=== PATIENT | female | born 1950 | race Caucasian/White ===

== ENCOUNTER 2017-03-28 13:38 | Observation (INO) | payer BC ==
[2017-03-28] MEDS ORDERED: ASPIRIN 81 MG PO STA (14:10)
[2017-03-28] MEDS ORDERED: NITROGLYCERIN SL TABS 0.4 MG TAB SUBLINGUAL STA (14:10)
[2017-03-28] MEDS ORDERED: NITROGLYCERIN OINT 1 INCH/GM PACKET TOPICAL STA (14:10)
--- NOTE | 2017-03-28 14:12 | ED ---
General Adult HPI - General Chief complaint: Chest Pain Stated complaint: Chest Pain Time Seen by Provider: 03/28/17 13:45 Source: patient, RN notes reviewed Mode of arrival: wheelchair Limitations: no limitations - History of Present Illness Initial comments: This is a 66-year-old female presents emergency Department complaining of chest pain 1 hour. Patient states it radiates to the back. Patient states she has no previous cardiac history but she does have high cholesterol denies any high blood pressure or diabetes. Patient denies any smoking for years. Patient states the pain is somewhat subsided now but it still is in the front of her chest a little. Patient denies any diaphoresis associated with the pain. Patient denies chance of breath or difficult to breathing. Patient denies any nausea. Patient states she has slight epigastric tenderness. Patient denies any lower abdominal pain. Patient denies any lightheadedness dizziness or near syncopal episode. Patient denies headache patient denies numbness weakness - Related Data Home Medications Medication Instructions Recorded Confirmed Aspirin EC [Ecotrin Low Dose] 81 mg PO HS 03/28/17 03/28/17 Multivitamins, Thera [Multivitamin 1 tab PO DAILY 03/28/17 03/28/17 (formulary)] Naltrexone HCl/Bupropion HCl 1 tab PO BID 03/28/17 03/28/17 [Contrave ER 8-90 mg Tablet] Rosuvastatin [Crestor] 20 mg PO HS 03/28/17 03/28/17 Allergies Allergy/AdvReac Type Severity Reaction Status Date / Time No Known Allergies Allergy Verified 03/28/17 13:57 Review of Systems ROS Statement: Those systems with pertinent positive or pertinent negative responses have been documented in the HPI. ROS Other: All systems not noted in ROS Statement are negative. Past Medical History Past Medical History: CVA/TIA, Hyperlipidemia Additional Past Medical History / Comment(s): 3 TIAs per patient History of Any Multi-Drug Resistant Organisms: None Reported Past Surgical History: Back Surgery, Hysterectomy Additional Past Surgical History / Comment(s): wrist and foot surgery Past Psychological History: No Psychological Hx Reported Smoking Status: Former smoker Past Alcohol Use History: Rare Past Drug Use History: None Reported General Exam - General Exam Comments Initial Comments: GENERAL: Patient is well-developed and well-nourished. Patient is nontoxic and well- hydrated and is in mild distress. ENT: Neck is soft and supple. No significant lymphadenopathy is noted. Oropharynx is clear. Moist mucous membranes. Neck has full range of motion without eliciting any pain. EYES: The sclera were anicteric and conjunctiva were pink and moist. Extraocular movements were intact and pupils were equal round and reactive to light. Eyelids were unremarkable. PULMONARY: Unlabored respirations. Good breath sounds bilaterally. No audible rales rhonchi or wheezing was noted. CARDIOVASCULAR: There is a regular rate and rhythm without any murmurs gallops or rubs. ABDOMEN: Soft and nontender with normal bowel sounds. No palpable organomegaly was noted. There is no palpable pulsatile mass. SKIN: Skin is clear with no lesions or rashes and otherwise unremarkable. NEUROLOGIC: Patient is alert and oriented x3. Cranial nerves II through XII are grossly intact. Motor and sensory are also intact. Normal speech, volume and content. Symmetrical smile. MUSCULOSKELETAL: Normal extremities with adequate strength and full range of motion. No lower extremity swelling or edema. No calf tenderness. LYMPHATICS: No significant lymphadenopathy is noted PSYCHIATRIC: Normal psychiatric evaluation. Normal interpersonal interactions appears functionally intact in deals appropriately with others. No signs of depression. No signs of anxiety. Limitations: no limitations Course Vital Signs 03/28/17 03/28/17 13:42 14:40 Temperature 97.8 F Pulse Rate 96 79 Respiratory 20 18 Rate Blood Pressure 180/107 139/76 O2 Sat by Pulse 99 99 Oximetry Medical Decision Making - Medical Decision Making EKG shows a normal sinus rhythm 86 bpm NM interval is 174 QRS is 74 QT interval 354 QTC is 423. Patient's EKG shows no ST segment elevation or depression or T wave abnormalities are noted Chest x-ray shows no acute abnormality. I started the patient on heparin because of the significance of her clinical picture and risk factors. Patient also received aspirin and Nitropaste. Patient will be admitted to Dr. Cruz. I wrote admitting orders I consult to cardiology I continued heparin Nitropaste and aspirin on the floor. - Lab Data Result diagrams: 03/28/17 14:20 03/28/17 14:20 Lab Results 03/28/17 03/28/17 03/28/17 Range/Units 14:20 14:20 14:20 WBC 9.0 (3.8-10.6) k/uL RBC 4.66 (3.80-5.40) m/uL Hgb 14.7 (11.4-16.0) gm/dL Hct 44.5 (34.0-46.0) % MCV 95.5 (80.0-100.0) fL MCH 31.7 (25.0-35.0) pg MCHC 33.2 (31.0-37.0) g/dL RDW 13.5 (11.5-15.5) % Plt Count 272 (150-450) k/uL Neutrophils % 64 % Lymphocytes % 30 % Monocytes % 4 % Eosinophils % 0 % Basophils % 0 % Neutrophils # 5.8 (1.3-7.7) k/uL Lymphocytes # 2.7 (1.0-4.8) k/uL Monocytes # 0.4 (0-1.0) k/uL Eosinophils # 0.0 (0-0.7) k/uL Basophils # 0.0 (0-0.2) k/uL PT (9.0-12.0) sec INR (<1.2) APTT (22.0-30.0) sec Sodium 142 (137-145) mmol/L Potassium 4.1 (3.5-5.1) mmol/L Chloride 108 H (98-107) mmol/L Carbon Dioxide 23 (22-30) mmol/L Anion Gap 11 mmol/L BUN 21 H (7-17) mg/dL Creatinine 0.90 (0.52-1.04) mg/dL Est GFR (MDRD) Af Amer >60 (>60 ml/min/1.73 sqM) Est GFR (MDRD) Non-Af >60 (>60 ml/min/1.73 sqM) Glucose 101 H (74-99) mg/dL Calcium 10.0 (8.4-10.2) mg/dL Magnesium 2.1 (1.6-2.3) mg/dL Total Bilirubin 0.3 (0.2-1.3) mg/dL AST 20 (14-36) U/L ALT 36 (9-52) U/L Alkaline Phosphatase 68 (38-126) U/L Total Creatine Kinase 47 (30-135) U/L CK-MB (CK-2) 0.6 (0.0-2.4) ng/mL CK-MB (CK-2) Rel Index 1.3 Troponin I <0.012 (0.000-0.034) ng/mL Total Protein 6.9 (6.3-8.2) g/dL Albumin 4.3 (3.5-5.0) g/dL Amylase 68 (30-110) U/L Lipase 298 (23-300) U/L 03/28/17 Range/Units 14:20 WBC (3.8-10.6) k/uL RBC (3.80-5.40) m/uL Hgb (11.4-16.0) gm/dL Hct (34.0-46.0) % MCV (80.0-100.0) fL MCH (25.0-35.0) pg MCHC (31.0-37.0) g/dL RDW (11.5-15.5) % Plt Count (150-450) k/uL Neutrophils % % Lymphocytes % % Monocytes % % Eosinophils % % Basophils % % Neutrophils # (1.3-7.7) k/uL Lymphocytes # (1.0-4.8) k/uL Monocytes # (0-1.0) k/uL Eosinophils # (0-0.7) k/uL Basophils # (0-0.2) k/uL PT 10.1 (9.0-12.0) sec INR 1.0 (<1.2) APTT 22.3 (22.0-30.0) sec Sodium (137-145) mmol/L Potassium (3.5-5.1) mmol/L Chloride (98-107) mmol/L Carbon Dioxide (22-30) mmol/L Anion Gap mmol/L BUN (7-17) mg/dL Creatinine (0.52-1.04) mg/dL Est GFR (MDRD) Af Amer (>60 ml/min/1.73 sqM) Est GFR (MDRD) Non-Af (>60 ml/min/1.73 sqM) Glucose (74-99) mg/dL Calcium (8.4-10.2) mg/dL Magnesium (1.6-2.3) mg/dL Total Bilirubin (0.2-1.3) mg/dL AST (14-36) U/L ALT (9-52) U/L Alkaline Phosphatase (38-126) U/L Total Creatine Kinase (30-135) U/L CK-MB (CK-2) (0.0-2.4) ng/mL CK-MB (CK-2) Rel Index Troponin I (0.000-0.034) ng/mL Total Protein (6.3-8.2) g/dL Albumin (3.5-5.0) g/dL Amylase (30-110) U/L Lipase (23-300) U/L Critical Care Time Critical Care Time: Yes Total Critical Care Time: 35 Disposition Clinical Impression: Unstable angina pectoris Disposition: ADMITTED IP TO THIS [facility] Referrals: Nonstaff,Physician [Primary Care Provider] - 1-2 days Time of Disposition: 15:50
--- NOTE | 2017-03-28 14:47 | XR ---
EXAMINATION TYPE: XR chest 2V DATE OF EXAM: 03/28/2017 COMPARISON: NONE HISTORY: Chest pain today. TECHNIQUE: Frontal and lateral views of the chest are obtained. FINDINGS: There is mild biapical scarring. There is patchy left basilar scarring. There is no focal air space opacity, pleural effusion, or pneumothorax seen. The cardiac silhouette size is within nor mal limits. The osseous structures are intact. IMPRESSION: No acute cardiopulmonary process.
[2017-03-28 14:50] LABS: Basophils % (A) 0 %; CH 31.3; CHCM 32.9; Eosinophils % (A) 0 %; HCT 44.5 % (34.0-46.0); HDW 2.11; HGB 14.7 gm/dL (11.4-16.0); Luc # (Auto) 0.08; Luc % (Auto) 1; Lymphocytes # (A) 2.7 k/uL (1.0-4.8); Lymphocytes % (A) 30 %; MCH 31.7 pg (25.0-35.0); MCHC 33.2 g/dL (31.0-37.0); MCV 95.5 fL (80.0-100.0); Mean Platelet Volume 7.7; Monocytes # (A) 0.4 k/uL (0-1.0); Monocytes % (A) 4 %; Neutrophils # (A) 5.8 k/uL (1.3-7.7); Neutrophils % (A) 64 %; RBC 4.66 m/uL (3.80-5.40); RDW 13.5 % (11.5-15.5); WBC (Perox) 8.97
[2017-03-28 14:57] LABS: Partial Thromboplastin Time 22.3 sec (22.0-30.0); Prothrombin Time 10.1 sec (9.0-12.0)
[2017-03-28 15:06] LABS: ALT 36 U/L (9-52); AST 20 U/L (14-36); Alkaline Phosphatase 68 U/L (38-126); Amylase 68 U/L (30-110); Anion Gap 11 mmol/L; Blood Urea Nitrogen 21 mg/dL (7-17); Carbon Dioxide 23 mmol/L (22-30); Chloride 108 mmol/L (98-107); Glucose 101 mg/dL (74-99); Magnesium 2.1 mg/dL (1.6-2.3); Non-African American GFR(MDRD) >60 (>60 ml/min/1.73 sqM); Potassium 4.1 mmol/L (3.5-5.1); Sodium 142 mmol/L (137-145); Total Bilirubin 0.3 mg/dL (0.2-1.3); Total Protein 6.9 g/dL (6.3-8.2)
[2017-03-28 15:09] LABS: Creatine Kinase 47 U/L (30-135)
[2017-03-28 15:22] LABS: Creatine Kinase MB 0.6 ng/mL (0.0-2.4); Troponin I <0.012 ng/mL (0.000-0.034)
[2017-03-28] MEDS ORDERED: HEPARIN SODIUM,PORCINE 5,000 UNIT/ML 1 ML VIAL IV ONE (15:48)
[2017-03-28] MEDS ORDERED: NITROGLYCERIN SL TABS 0.4 MG TAB SUBLINGUAL PRN (15:50)
[2017-03-28] MEDS ORDERED: HEPARIN SODIUM,PORCINE/D5W PMX 25,000 UNIT in DEXTROSE/WATER 1 500ML.BAG IV SCH (16:00)
[2017-03-28 17:06] LABS: Appearance,Urine Clear (Clear); Bilirubin,Urine Negative (Negative); Glucose,Urine (UA) Negative (Negative); Ketones,Urine Trace (Negative); Leukocyte Esterase,Urine Negative (Negative); Nitrite,Urine Negative (Negative); Protein,Urine Negative (Negative); Specific Gravity,Urine 1.004 (1.001-1.035); UA Billing (MACRO vs. MICRO) CHEM; Urobilinogen,Urine <2.0 mg/dL (<2.0)
[2017-03-28] MEDS ORDERED: ACETAMINOPHEN TAB 325 MG TAB PO PRN (17:47)
[2017-03-28] MEDS ORDERED: NITROGLYCERIN OINT 1 INCH/GM PACKET TOPICAL SCH (18:00)
[2017-03-28] MEDS ORDERED: ONDANSETRON 4 MG/2 ML VIAL IVP PRN (20:04)
[2017-03-28] MEDS ORDERED: HYDROcodone/APAP 5-325MG 1 EACH TAB PO PRN (20:04)
[2017-03-28] MEDS ORDERED: ZOLPIDEM 10 MG TAB PO PRN (20:04)
[2017-03-28] MEDS ORDERED: MORPHINE SULFATE 10 MG/ML SYRINGE IVP PRN (20:05)
[2017-03-28] MEDS ORDERED: ATORVASTATIN 40 MG TAB PO SCH (21:00)
--- NOTE | 2017-03-28 21:55 | HP ---
HISTORY AND PHYSICAL CHIEF COMPLAINT: Chest pain. HISTORY OF PRESENT ILLNESS: This 66-year-old woman with a past medical history of CVA, TIA, hyperlipidemia, history of DJD, history of cardiac ablation, being followed by a primary physician in the [place] area, was complaining of chest pain. The patient initially had sharp chest pains followed by heavy pressure in the anterior part of the chest which radiated to the back. The patient got some nitroglycerin, which relieved the chest pain but gave the patient a headache. Patient was admitted for further evaluation and treatment. There was no sweating or palpitation. Radiation as mentioned earlier. No other relieving or aggravating factors. There is no history of any fever, rigors, chills, no history of headache, loss of consciousness, seizures. PAST MEDICAL HISTORY: 1. CVA, TIA. 2. Hyperlipidemia. 3. History of DJD. 4. History of TIAs, ablation. 5. Appendectomy. 6. Back surgery. MEDICATIONS: Medications prior to admission include: 1. Contrave 1 tablet p.o. b.i.d. 2. Multivitamins 1 p.o. daily. 3. Crestor 20 mg at bedtime. 4. Ecotrin 81 mg at bedtime. ALLERGIES: NONE. FAMILY HISTORY: History of cancer and myasthenia gravis. SOCIAL HISTORY: Previous history of smoking. No current smoking or alcohol intake. REVIEW OF SYSTEMS: ENT: No diminished hearing. No diminished vision. CARDIOVASCULAR SYSTEM: As mentioned earlier. RESPIRATORY SYSTEM: No cough, hemoptysis. GI: No nausea, vomiting. : No dysuria or retention. NERVOUS SYSTEM: No numbness, weakness. ALLERGY/IMMUNOLOGY: No asthma, hayfever. MUSCULOSKELETAL: As mentioned earlier. HEMATOLOGY/ONCOLOGY: No history of anemia. ENDOCRINE: No history of diabetes, hypothyroidism. CONSTITUTIONAL: As mentioned earlier. DERMATOLOGY: Negative. RHEUMATOLOGY: Negative. PSYCHIATRY: As mentioned earlier. PHYSICAL EXAMINATION: Patient is alert and oriented x3. Pulse is 73, blood pressure 126/68, respiration 18, temperature 97.8, pulse ox 99% on 2 L. HEENT: Conjunctivae normal. Oral mucosa moist. NECK: No jugular venous distention. No carotid bruit. No lymph node enlargement. CARDIOVASCULAR SYSTEM: S1, S2 muffled. No S3. No S4. RESPIRATORY SYSTEM: Breath sounds diminished at the bases. No rhonchi. No crackles. ABDOMEN: Soft, nontender. No mass palpable. LEGS: No edema. No swelling. NERVOUS SYSTEM: Higher functions as mentioned earlier. Moves all 4 limbs. No focal motor or sensory deficit. LYMPHATICS: No lymph node palpable in neck, axillae or groin. SKIN: No ulcer, rash, bleeding. LABS AT THIS TIME: CBC within normal limits. Sodium 140, potassium 4.1. BUN is 21. ASSESSMENT: 1. Chest pain; possible unstable angina. 2. Cerebrovascular accident, transient ischemic attack history. 3. Hyperlipidemia. 4. Degenerative joint disease. 5. History of appendectomy. 6. Back surgery. 7. Tubal ligation. 8. Remote history of nicotine dependence. RECOMMENDATIONS AND DISCUSSION: I recommend to continue current medication, continue symptomatic treatment. Rule out myocardial infarction. Closely follow with Cardiology. Possible stress test. Guarded prognosis because of multiple complex medical issues. Further recommendations to follow. MMODL / IJN: [id number] /
[2017-03-28 22:28] LABS: Creatine Kinase 38 U/L (30-135)
[2017-03-28 22:40] LABS: Creatine Kinase MB 0.4 ng/mL (0.0-2.4); Troponin I <0.012 ng/mL (0.000-0.034)
[2017-03-28] MEDS: BUPROPION HCL PO SCH (23:17)
[2017-03-28] MEDS: NALTREXONE HCL PO SCH (23:17)
[2017-03-29 02:49] LABS: Creatine Kinase 37 U/L (30-135)
[2017-03-29 03:02] LABS: Creatine Kinase MB 0.4 ng/mL (0.0-2.4); Troponin I <0.012 ng/mL (0.000-0.034)
[2017-03-29 06:08] LABS: Basophils % (A) 1 %; CH 31.2; CHCM 32.7; Eosinophils # (A) 0.1 k/uL (0-0.7); Eosinophils % (A) 2 %; HCT 44.1 % (34.0-46.0); HDW 2.15; HGB 14.2 gm/dL (11.4-16.0); Luc # (Auto) 0.11; Luc % (Auto) 2; Lymphocytes # (A) 2.6 k/uL (1.0-4.8); Lymphocytes % (A) 48 %; MCH 30.9 pg (25.0-35.0); MCHC 32.2 g/dL (31.0-37.0); MCV 95.9 fL (80.0-100.0); Monocytes # (A) 0.3 k/uL (0-1.0); Monocytes % (A) 5 %; Neutrophils # (A) 2.3 k/uL (1.3-7.7); Neutrophils % (A) 43 %; RBC 4.59 m/uL (3.80-5.40); RDW 12.2 % (11.5-15.5); WBC 5.5 k/uL (3.8-10.6); WBC (Perox) 5.19
[2017-03-29 06:22] LABS: Anion Gap 11 mmol/L; Blood Urea Nitrogen 16 mg/dL (7-17); Calcium 9.3 mg/dL (8.4-10.2); Carbon Dioxide 22 mmol/L (22-30); Chloride 109 mmol/L (98-107); Cholesterol 169 mg/dL (<200); Glucose 93 mg/dL (74-99); HDL Cholesterol 69 mg/dL (40-60); Non-African American GFR(MDRD) >60 (>60 ml/min/1.73 sqM); Potassium 4.2 mmol/L (3.5-5.1); Sodium 142 mmol/L (137-145)
[2017-03-29] MEDS ORDERED: ASPIRIN 325 MG TAB PO SCH (09:00)
[2017-03-29] MEDS: NALTREXONE HCL PO SCH (09:50)
[2017-03-29] MEDS: BUPROPION HCL PO SCH (09:50)
--- NOTE | 2017-03-29 11:22 | P.CRDCN ---
History of Present Illness Consult date: 03/29/17 History of present illness: Mrs Ferro is a 66-year-old female past medical history significant for hyperlipidemia and frequent TIAs. She does not see a rental agent and denies any history of coronary artery disease. She states yesterday after eating she experienced midsternal sharp chest pain radiated through to her back. She states in the past she has suffered from gastroesophageal reflux disease and typically she can drink some vinegar and this pain will subside. This did not work yesterday so she attempted some Tums she took 3 Tums and had no relief. The pain persisted for approximately an hour and was only relieved with sublingual nitroglycerin upon arrival to the ED. The pain did not radiate into the arms, neck, jaw or shoulder. She denies associated shortness of breath, dizziness, nausea or vomiting. She states during this episode she felt like her heart was pounding. She takes Crestor and aspirin daily. Blood pressure 111/63 with a heart rate is 67. EKG reveals sinus mechanism with no acute ST or T-wave abnormalities. Chest xray negative for acute cardiopulmonary process. Review of Systems CONSTITUTIONAL: Denies fever. Denies chills. EYES: Denies blurred vision. Denies vision changes. Denies eye pain. EARS, NOSE, MOUTH & THROAT: Denies headache. Denies sore throat. Denies ear pain. CARDIOVASCULAR: Complains of one episode of chest pain yesterday with pounding in her chest. Denies shortness of breath. Denies orthopnea. Denies PND. RESPIRATORY: Denies cough. GASTROINTESTINAL: Denies abdominal pain. Denies diarrhea. Denies constipation. Denies nausea. Denies vomitng. MUSCULOSKELETAL: Denies myalgias. INTEGUMENTARY: Denies pruitis. Denies rash. NEUROLOGIC: Denies numbness. Denies tingling. Denies weakness. PSYCHIATRIC: Denies anxiety. Denies depression. ENDOCRINE: Denies fatigue. Denies weight change. Denies polydipsia. Denies polyurina. GENITOURINARY: Denies burning, hematuria or urgency with micturation. HEMATOLOGIC: Denies history of anemia. Denies bleeding. Past Medical History Past Medical History: CVA/TIA, Hyperlipidemia, Osteoarthritis (OA) Additional Past Medical History / Comment(s): 3 TIAs per patient , UPPER BRIDGE , BEGINNINGS OF CATARACTS(SATNAM), DIVERTICULAR DISEASE, SHINGLES , PAST RT WRIST BROKEN History of Any Multi-Drug Resistant Organisms: None Reported Past Surgical History: Ablation, Appendectomy, Back Surgery, Hysterectomy, Tubal Ligation Additional Past Surgical History / Comment(s): SATNAM BUNIONECTOMY HAS PINS/SCREWS , TOTAL HYSTERECTOMY, RT WRIST SX"RESET BROKEN WRIST" Past Anesthesia/Blood Transfusion Reactions: No Reported Reaction Smoking Status: Former smoker - Past Family History Mother Additional Family Medical History / Comment(s): MG Father Family Medical History: Cancer Additional Family Medical History / Comment(s): LUNG CANCER- WAS A HEAVY SMOKER Medications and Allergies Home Medications Medication Instructions Recorded Confirmed Type Aspirin EC [Ecotrin Low Dose] 81 mg PO HS 03/28/17 03/28/17 History Multivitamins, Thera [Multivitamin 1 tab PO DAILY 03/28/17 03/28/17 History (formulary)] Naltrexone HCl/Bupropion HCl 1 tab PO BID 03/28/17 03/28/17 History [Contrave ER 8-90 mg Tablet] Rosuvastatin [Crestor] 20 mg PO HS 03/28/17 03/28/17 History Allergies Allergy/AdvReac Type Severity Reaction Status Date / Time No Known Allergies Allergy Verified 03/28/17 13:57 Physical Exam Vitals: Vital Signs Temp Pulse Pulse Resp BP BP Pulse Ox 03/29/17 07:54 97.7 F 67 16 111/63 95 03/29/17 03:50 18 03/29/17 03:37 98 F 70 18 118/64 99 03/29/17 00:00 98.1 F 66 18 130/61 100 03/28/17 23:54 18 03/28/17 20:00 18 03/28/17 19:55 98.1 F 78 18 138/72 98 03/28/17 16:59 76 18 03/28/17 16:47 97.7 F 76 18 151/73 96 03/28/17 16:20 97.8 F 73 18 126/68 99 03/28/17 14:40 79 18 139/76 99 03/28/17 13:42 97.8 F 96 20 180/107 99 Intake and Output 03/28/17 03/29/17 03/29/17 22:59 06:59 14:59 Intake Total 240 131.658 Balance 240 131.658 Intake: Intake, IV Titration 131.658 Amount Heparin Sodium,Porcine/ 131.658 D5w Pmx 25,000 unit In Dextrose/Water 1 500ml. bag @ 12 UNITS/KG/HR 18.5 mls/hr IV .Q24H [facility] Rx#: [id number] Oral 240 Other: Voiding Method Toilet Toilet Toilet # Voids 1 Weight 80.8 kg GENERAL: This is a 66-year-old female in no apparent distress at the time of my examination. HEENT: Head is atraumatic, normocephalic. Pupils are equal, round. Sclerae anicteric. Conjunctivae are clear. Mucous membranes of the mouth are moist. Neck is supple. There is no jugular venous distention. No carotid bruit is heard. LUNGS: Clear to auscultation no wheezes, rales or rhonchi. No chest wall tenderness is noted on palpation or with deep breathing. HEART: Regular rate and rhythm without murmurs, rubs or gallops. S1 and S2 heard. ABDOMEN: Soft, nontender. Bowel sounds are heard. No organomegaly noted. EXTREMITIES: 2+ peripheral pulses with no evidence of peripheral edema and no calf tenderness noted. NEUROLOGIC: Patient is awake, alert and oriented x3. Results 03/29/17 05:35 03/29/17 05:35 Cardiac Enzymes 03/28/17 03/28/17 03/28/17 Range/Units 14:20 14:20 21:44 AST 20 (14-36) U/L CK-MB (CK-2) 0.6 0.4 (0.0-2.4) ng/mL Troponin I <0.012 <0.012 (0.000-0.034) ng/mL 03/29/17 Range/Units 02:10 AST (14-36) U/L CK-MB (CK-2) 0.4 (0.0-2.4) ng/mL Troponin I <0.012 (0.000-0.034) ng/mL Coagulation 03/28/17 03/28/17 03/29/17 Range/Units 14:20 21:44 05:35 PT 10.1 (9.0-12.0) sec APTT 22.3 42.7 H 47.4 H (22.0-30.0) sec Lipids 03/29/17 Range/Units 05:35 Triglycerides 80 (<150) mg/dL Cholesterol 169 (<200) mg/dL HDL Cholesterol 69 H (40-60) mg/dL CBC 03/28/17 03/29/17 Range/Units 14:20 05:35 WBC 9.0 5.5 (3.8-10.6) k/uL RBC 4.66 4.59 (3.80-5.40) m/uL Hgb 14.7 14.2 (11.4-16.0) gm/dL Hct 44.5 44.1 (34.0-46.0) % Plt Count 272 269 (150-450) k/uL Comprehensive Metabolic Panel 03/28/17 03/29/17 Range/Units 14:20 05:35 Sodium 142 142 (137-145) mmol/L Potassium 4.1 4.2 (3.5-5.1) mmol/L Chloride 108 H 109 H (98-107) mmol/L Carbon Dioxide 23 22 (22-30) mmol/L BUN 21 H 16 (7-17) mg/dL Creatinine 0.90 0.75 (0.52-1.04) mg/dL Glucose 101 H 93 (74-99) mg/dL Calcium 10.0 9.3 (8.4-10.2) mg/dL AST 20 (14-36) U/L ALT 36 (9-52) U/L Alkaline Phosphatase 68 (38-126) U/L Total Protein 6.9 (6.3-8.2) g/dL Albumin 4.3 (3.5-5.0) g/dL Current Medications Generic Name Dose Route Start Last Admin Trade Name Freq PRN Reason Stop Dose Admin Acetaminophen 650 mg 03/28/17 17:47 03/28/17 18:48 Tylenol Tab PO 650 mg Q6HR PRN Administration Fever and/ or Mild Pain Hydrocodone Bitart/Acetaminophen 1 each 03/28/17 20:04 03/28/17 20:19 [place] 5-325 PO 1 each Q6HR PRN Administration Moderate Pain Aspirin 325 mg 03/29/17 09:00 Aspirin PO DAILY GEMMA Atorvastatin Calcium 40 mg 03/28/17 21:00 03/28/17 20:19 Lipitor PO 40 mg HS GEMMA Administration Heparin Sodium/Dextrose 25,000 500 mls @ 18.5 mls/hr 03/28/17 16:00 03/28/17 23:18 unit/ IV Solution IV 14 units/kg/hr .Q24H GEMMA 21.59 mls/hr Protocol Titration 12 UNITS/KG/HR Morphine Sulfate 2 mg 03/28/17 20:05 Morphine Sulfate (Inj) IVP Q4HR PRN Severe Pain Multivitamins 1 each 03/29/17 12:00 Theragran PO DAILY@1200 GEMMA Nitroglycerin 0.4 mg 03/28/17 15:50 Nitrostat SUBLINGUAL Q5M PRN Chest Pain Naltrexone Hcl/ 1 tab 03/28/17 21:00 03/28/17 23:17 Bupropion Hcl [ PO Not Given Contrave Er 8-90 Mg BID [facility] Tablet] Ondansetron HCl 4 mg 03/28/17 20:04 Zofran IVP Q6HR PRN Nausea And Vomiting Zolpidem Tartrate 10 mg 03/28/17 20:04 03/28/17 20:19 Ambien PO 10 mg HS PRN Administration Insomnia Intake and Output 03/28/17 03/29/17 03/29/17 22:59 06:59 14:59 Intake Total 240 131.658 Balance 240 131.658 Intake: Intake, IV Titration 131.658 Amount Heparin Sodium,Porcine/ 131.658 D5w Pmx 25,000 unit In Dextrose/Water 1 500ml. bag @ 12 UNITS/KG/HR 18.5 mls/hr IV .Q24H [facility] Rx#: [id number] Oral 240 Other: Voiding Method Toilet Toilet Toilet # Voids 1 Weight 80.8 kg 03/29/17 05:35 03/29/17 05:35 Assessment and Plan Assessment: ASSESSMENT 1. Chest pain, atypical 2. Hyperlipidemia 3. History TIA PLAN EKG and cardiac enzymes have ruled out an acute coronary event. We would also like to obtain 2D echocardiogram and doppler study to assess cardiac structure and function as well as exercise stress echocardiogram. If this testing is normal she is stable for discharge home to follow up with her PCP. Thank you kindly for this consultation. Nurse Practitioner note has been reviewed, I agree with a documented findings and plan of care. Patient was seen and examined.
--- NOTE | 2017-03-29 11:43 | ECHOF ---
Referral Reason:cp MEASUREMENTS -------- HEIGHT: 165.1 cm WEIGHT: 80.7 kg BP: 111/63 RVIDd: 2.9 cm (< 3.3) IVSd: 0.9 cm (0.6 - 1.1) LVIDd: 3.7 cm (3.9 - 5.3) LVPWd: 1.0 cm (0.6 - 1.1) IVSs: 1.4 cm LVIDs: 2.5 cm LVPWs: 1.6 cm LA Diam: 3.1 cm (2.7 - 3.8) LAESV Index (A-L): 12.51 ml/m Ao Diam: 3.1 cm (2.0 - 3.7) AV Cusp: 2.0 cm (1.5 - 2.6) MV EXCURSION: 10.412 mm (> 18.000) MV EF SLOPE: 44 mm/s (70 - 150) EPSS: 0.4 cm MV E Tulio: 0.65 m/s MV DecT: 254 ms MV A Tulio: 0.87 m/s MV E/A Ratio: 0.75 FINDINGS -------- Sinus rhythm. This was a technically adequate study. The left ventricular size is normal. Left ventricular wall thickness is normal. Overall left vent ricular systolic function is normal with, an EF between 55 - 60 %. The right ventricle is normal in size. Normal LA size by volume 22+/-6 ml/m2. The right atrium is normal in size. The aortic valve is trileaflet and appears structurally normal. The mitral valve is normal. The tricuspid valve appears structurally normal. The pulmonic valve was not well visualized. There is no pulmonic regurgitation present. The aortic root size is normal. Normal inferior vena cava with normal inspiratory collapse consistent with estimated right atrial pre ssure of 5 mmHg. There is no pericardial effusion. CONCLUSIONS -------- 1. Sinus rhythm. 2. This was a technically adequate study. 3. Left ventricular wall thickness is normal. 4. Overall left ventricular systolic function is normal with, an EF between 55 - 60 %. 5. Normal LA size by volume 22+/-6 ml/m2. 6. The aortic valve is trileaflet and appears structurally normal. 7. The mitral valve is normal. 8. The tricuspid valve appears structurally normal. 9. The pulmonic valve was not well visualized. 10. There is no pulmonic regurgitation present. 11. The aortic root size is normal. 12. Normal inferior vena cava with normal inspiratory collapse consistent with estimated right atrial pressure of 5 mmHg. 13. There is no pericardial effusion. ENVIRONMENTAL DIRECTOR: Rox Rico RDCS
[2017-03-29] MEDS ORDERED: MULTIVITAMINS, THERA 1 EACH TAB PO SCH (12:00)
--- NOTE | 2017-03-29 12:55 | ECHOS ---
Referral Reason:chest pain MEASUREMENTS -------- HEIGHT: 0.0 cm WEIGHT: 0.0 kg BP: FINDINGS -------- Utilizing the standard Jean-Claude protocol the patient was exercised for 7 minutes, 45 seconds, achieving a maximum heart rate of , which is 100 % of predicted maximal heart rate. There was physiologic heart rate and blood pressure response to exercise. Max Heart Rate: 156 % of Max Predicted Heart Rate: 100 Rest Heart Rate: 73 Rest BP: 118/60 Max BP: 166/81 Mets Achieved: 9.3 The test was stopped because of fatigue. This level of exercise represents an average exercise tolerance for age. Sinus rhythm. In response to stress, the ECG showed no diagnostic ST-T wave changes . In response to stress, the ECG showed no ST-T wave changes . There were normal blood pressure and heart rate responses to stress. LV size, wall thickness and systolic function are normal, with an EF of 60%. Echo images were acquired at peak stress which demonstrated appropriate augmentation of all left ventricular segments. CONCLUSIONS -------- 1. Utilizing the standard Jean-Claude protocol the patient was exercised for 7 minutes, 45 seconds, achieving a maximum heart rate of , which is 100 % of predicted maximal heart rate. There was physiologic heart rate and blood pressure response to exercise. 2. This level of exercise represents an average exercise tolerance for age. 3. In response to stress, the ECG showed no diagnostic ST-T wave changes . 4. No 2D echocardiographic evidence of inducible ischemia to achieved workload. CONTINUOUS MINER OPERATOR: Natali Echols, MISSY MTDD
[2017-03-29 13:33] VITALS: BP 128/65; PULSE 93; RESP 18; TEMP 98.6
--- NOTE | 2017-03-29 14:56 | P.DS ---
Providers Date of admission: 03/28/17 15:50 Attending physician: Vik Cruz Consults: 03/28/17 15:50 Consult Physician Urgent Consulting Provider: [facility] Consult Reason/Comments: Unstable angina Do you want consulting provider notified?: Yes Primary care physician: Physician Nonstaff Hospital Course: 66-year-old woman with a past medical history multiple medical problems was admitted chest pain. Myocardial infarction was ruled out. Cardiology recommended a stress test. The stress test was negative. Patient be discharged in a stable condition with guarded prognosis after clearance from cardiology further plans to follow up in the outpatient cardiology and primary care physician. Patient understands and agrees. On exam vitals stable. Cardio S1 and S2 normal. Her system clear to auscultation. Abdomen soft nontender. Final diagnosis 1. Chest pain possibly muscle skeletal. Negative stress test. 2. CVA TIA history. 3. Hyperlipidemia. 4. DJD. 5. History of appendectomy. 6. History of back surgery. Plan - Discharge Summary Discharge Rx Participant: No New Discharge Prescriptions: Continue Naltrexone HCl/Bupropion HCl [Contrave ER 8-90 mg Tablet] 1 tab PO BID Multivitamins, Thera [Multivitamin (formulary)] 1 tab PO DAILY Rosuvastatin [Crestor] 20 mg PO HS Aspirin EC [Ecotrin Low Dose] 81 mg PO HS Discharge Medication List Aspirin EC [Ecotrin Low Dose] 81 mg PO HS 03/28/17 [History] Multivitamins, Thera [Multivitamin (formulary)] 1 tab PO DAILY 03/28/17 [History ] Naltrexone HCl/Bupropion HCl [Contrave ER 8-90 mg Tablet] 1 tab PO BID 03/28/17 [History] Rosuvastatin [Crestor] 20 mg PO HS 03/28/17 [History] Follow up Appointment(s)/Referral(s): Dr. Elvin Lowry [Other] - 3 Days Livan Adkins MD [STAFF PHYSICIAN] - As Needed Patient Instructions/Handouts: Angina (GEN) Discharge Disposition: HOME SELF-CARE
== END 2017-03-29 14:17 | disposition home or self-care (01) ==
LOC: SUPCPDRO 13:38 → EC 13:38 → 3OBS 15:50
PROVIDERS: ADMIT Hospitalist; ATTEND Hospitalist
DX: R07.89 Other chest pain (principal); R10.816 Epigastric abdominal tenderness; E78.5 Hyperlipidemia, unspecified; M19.90 Unspecified osteoarthritis, unspecified site; Z79.82 Long term (current) use of aspirin; Z79.899 Other long term (current) drug therapy; Z87.891 Personal history of nicotine dependence; Z86.73 Personal history of transient ischemic attack (TIA), and cerebral infarction without residual deficits; Z98.51 Tubal ligation status; Z90.49 Acquired absence of other specified parts of digestive tract
CPT/HCPCS: 99291 ×2; 96376 ×2; 96365; 96366 ×2; 36415; 93005; 93017; 93306; 93350; 80061; 80053; 80048; 82150; 82550 ×2; 82553 ×2; 83690; 83735; 84484 ×2; 85025 ×2; 85610; 85730 ×2; 81003; 71020; G0378 ×2; J1644 ×2

== ENCOUNTER → 2018-01-21 | Outpatient (CLI) | payer MEDICARE ==
--- NOTE | 2018-01-21 09:06 | US ---
EXAMINATION TYPE: US duplex aorta DATE OF EXAM: 01/21/2018 COMPARISON: NONE CLINICAL HISTORY: Z13.6 AAA screening. EXAM MEASUREMENTS: Abdominal Aorta: Proximal: 2.2 x 2.1 x 2.1 cm Mid: 1.4 x 1.4 x 1.7 cm Distal: 1.2 x 1.2 x 1.3 cm Bifurcation: RT: 1.1 x 1.0 x 1.0 cm LT: 1.0 x 1.1 x 0.9 cm Atherosclerotic changes visualized, No sonographic evidence for AAA. IMPRESSION: Atherosclerotic changes visualized, No sonographic evidence for AAA.
== END | disposition home or self-care (01) ==
LOC: RADUSWWP 08:41
PROVIDERS: ATTEND Family Medicine
DX: I70.0 Atherosclerosis of aorta (principal)
CPT/HCPCS: 93979

== ENCOUNTER → 2018-04-01 | Outpatient (CLI) | payer MEDICARE ==
--- NOTE | 2018-04-05 12:03 | MM ---
Reason for exam: screening (asymptomatic). Last mammogram was performed 1 year and 1 month ago. Physical Findings: A clinical breast exam by your physician is recommended on an annual basis and results should be correlated with mammographic findings. MG 3D Screening Mammo W/Cad Bilateral CC and MLO view(s) were taken. Prior study comparison: February 20, 2017, mammogram, performed at [facility]. February 17, 2015, mammogram, performed at [facility]. The breast tissue is heterogeneously dense. This may lower the sensitivity of mammography. Stable benign calcifications. There is no discrete abnormality. No significant changes when compared with prior studies. ASSESSMENT: Benign, BI-RAD 2 RECOMMENDATION: Routine screening mammogram of both breasts in 1 year.
== END ==
LOC: RADMAMWWP 08:57
PROVIDERS: ATTEND Family Medicine
DX: Z12.31 Encounter for screening mammogram for malignant neoplasm of breast (principal)
CPT/HCPCS: 77063; 77067

== ENCOUNTER 2019-01-17 19:17 | Emergency (ER) | payer MEDICARE ==
[2019-01-17 19:35] VITALS: RESP 18
[2019-01-17] MEDS ORDERED: MORPHINE SULFATE 4 MG/ML SYRINGE IM STA (20:07)
--- NOTE | 2019-01-17 20:49 | XR ---
EXAMINATION TYPE: XR Hip LT and AP Pelvis DATE OF EXAM: 01/17/2019 COMPARISON: NONE HISTORY: Left hip pain TECHNIQUE: A single AP view of the pelvis is obtained. Two views of the left hip are obtained. FINDINGS: Pelvic ring is intact. Proximal left femur and hip joint are intact. Hip joint spaces are f airly normal. Sacroiliac joints appear normal. IMPRESSION: Negative pelvis and left hip exam.
--- NOTE | 2019-01-17 20:50 | XR ---
EXAMINATION TYPE: XR lumbar spine 2 or 3V DATE OF EXAM: 01/17/2019 COMPARISON: NONE HISTORY: Left hip pain. Back pain TECHNIQUE: 3 views FINDINGS: Lumbar vertebra have normal alignment. There is narrowing of L4-5 and L5-S1 disc spaces wit h spurring of the endplates. Abdominal aorta is atheromatous. There is no lumbar compression fracture . Posterior elements appear intact. Sacroiliac joints appear intact. 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 No fracture seen. Atheromatous aorta.
--- NOTE | 2019-01-17 20:56 | ED ---
General Adult HPI - General Chief complaint: Fall Stated complaint: Fall Time Seen by Provider: 01/17/19 19:37 Source: patient, RN notes reviewed, old records reviewed Mode of arrival: wheelchair Limitations: physical limitation - History of Present Illness Initial comments: 68-year-old female patient with a chief complaint fall, low back pain, left hip pain. Patient works that she was walking down stairs and she slipped, fell on her gluteal region. Patient was that she then slid down approximately 4-5 stairs. Patient reports that she currently has pain in her left hip region as well as her left paralumbar region. Patient denies any other complaints at this time. Denies any trauma to head or neck, denies any use of blood thinners. Systemic: Pt denies fatigue, fever/chills, rash. Pt denies weakness, night sweats, weight loss. Neuro: Pt denies headache, visual disturbances, syncope or pre-syncope. HEENT: Pt denies ocular discharge or irritation, otalgia, rhinorrhea, pharyngitis or notable lymphadenopathy. Cardiopulmonary: Pt denies chest pain, SOB, heart palpitations, dyspnea on exertion. Abdominal/GI: Pt denies abdominal pain, n/v/d. : Pt denies dysuria, burning w/ urination, frequency/urgency. Denies new onset urinary or bowel incontinence. MSK: Pt denies myalgia, loss of strength or function in extremities. Neuro: Pt denies new onset weakness, paresthesias. - Related Data Home Medications Medication Instructions Recorded Confirmed Aspirin EC [Ecotrin Low Dose] 81 mg PO HS 03/28/17 03/28/17 Multivitamins, Thera [Multivitamin 1 tab PO DAILY 03/28/17 03/28/17 (formulary)] Naltrexone HCl/Bupropion HCl 1 tab PO BID 03/28/17 03/28/17 [Contrave ER 8-90 mg Tablet] Rosuvastatin [Crestor] 20 mg PO HS 03/28/17 03/28/17 Allergies Allergy/AdvReac Type Severity Reaction Status Date / Time No Known Allergies Allergy Verified 01/17/19 19:36 Review of Systems ROS Statement: Those systems with pertinent positive or pertinent negative responses have been documented in the HPI. ROS Other: All systems not noted in ROS Statement are negative. Past Medical History Past Medical History: CVA/TIA, Hyperlipidemia, Osteoarthritis (OA) Additional Past Medical History / Comment(s): 3 TIAs per patient , UPPER BRIDGE, BEGINNINGS OF CATARACTS(SATNAM), DIVERTICULAR DISEASE, SHINGLES , PAST RT WRIST BROKEN History of Any Multi-Drug Resistant Organisms: None Reported Past Surgical History: Ablation, Appendectomy, Back Surgery, Hysterectomy, Tubal Ligation Additional Past Surgical History / Comment(s): SATNAM BUNIONECTOMY HAS PINS/SCREWS, TOTAL HYSTERECTOMY, RT WRIST SX"RESET BROKEN WRIST" Past Anesthesia/Blood Transfusion Reactions: No Reported Reaction Past Psychological History: No Psychological Hx Reported Smoking Status: Former smoker Past Alcohol Use History: Occasional Past Drug Use History: None Reported - Past Family History Mother Additional Family Medical History / Comment(s): MG Father Family Medical History: Cancer Additional Family Medical History / Comment(s): LUNG CANCER- WAS A HEAVY SMOKER General Exam - General Exam Comments Initial Comments: Constitutional: NAD, AOX3, Pt has pleasant affect. HEENT: NC/AT, trachea midline, neck supple, no lymphadenopathy. Posterior pharynx non erythematous, without exudates. External ears appear normal, without discharge. Mucous membranes moist. Eyes PERRLA, EOM intact. There is no scleral icterus. No pallor noted. Cardiopulmonary: RRR, no murmurs, rubs or gallops, no JVD noted. Lungs CTAB in anterior and posterior amaro. No peripheral edema. Abdominal exam: Abdomen soft and non-distended. Abdomen non-tender to palpation in all 4 quadrants. Bowel sounds active in LLQ. No hepatosplenomegaly. No ecchymosis Neuro: CN II-XII grossly intact. No nuchal rigidity. No raccon eyes, no ratliff sign, no hemotympanum. No cervical spinal tenderness. MSK: Left paralumbar tenderness, mild left hip tenderness, distal pulses intact and equal. No posterior calf tenderness bilaterally, homans sign negative bilaterally. Posterior tibialis and radial pulse +2 bilaterally. Sensation intact in upper and lower extremities. Full active ROM in upper and lower extremities, 5/5 stregnth. Pt ambulatory without difficulty. Limitations: physical limitation Course Vital Signs 01/17/19 19:32 Temperature 97.9 F Pulse Rate 79 Respiratory 18 Rate Blood Pressure 144/91 O2 Sat by Pulse 95 Oximetry Medical Decision Making - Medical Decision Making 68-year-old female patient with a chief complaint fall, low back pain, left hip pain. Patient works that she was walking down stairs and she slipped, fell on her gluteal region. Patient was that she then slid down approximately 4-5 stairs. Patient reports that she currently has pain in her left hip region as well as her left paralumbar region. Patient denies any other complaints at this time. Denies any trauma to head or neck, denies any use of blood thinners. Pt VSS, afebrile. Physical exam displayed: Left paralumbar tenderness, mild left hip tenderness, distal pulses intact and equal. No posterior calf tenderness bilaterally, homans sign negative bilaterally. Patient was able to ambulate without difficulty. Plain films of lumbar spine, hip and pelvis did not display acute process. Patient will be discharged, follow up with primary care provider, patient will return to ER patient worsens. Case discussed with Dr. Mclean. Disposition Clinical Impression: Fall Disposition: HOME SELF-CARE Condition: Stable Instructions (If sedation given, give patient instructions): Fall Prevention (ED) Additional Instructions: Patient to adhere to previously discussed treatment plan and will take medication(s) as directed. Patient to follow up with PCP in 1-2 days. Patient to return to ED if symptoms do not improve. Follow-up with orthopedic consult of pain and symptoms persist. Is patient prescribed a controlled substance at d/c from ED?: No Referrals: Nonstaff,Physician [Primary Care Provider] - 1-2 days Mc Elliott PAC [PHYSICIAN FITNESS PLAN COORDINATOR] - 1-2 days
[2019-01-17] MEDS ORDERED: ACET/COD 300 MG/30 MG STARTER PACK 6 TAB BTL PO STA (21:18)
[2019-01-17 21:31] VITALS: BP 140/80; PULSE 80; TEMP 98.7
== END 2019-01-17 21:31 | disposition home or self-care (01) ==
LOC: EC 19:17
DX: M54.5 Low back pain (principal); M25.552 Pain in left hip; E78.5 Hyperlipidemia, unspecified; M19.90 Unspecified osteoarthritis, unspecified site; Z86.73 Personal history of transient ischemic attack (TIA), and cerebral infarction without residual deficits; Z87.891 Personal history of nicotine dependence; Z79.82 Long term (current) use of aspirin; Z79.891 Long term (current) use of opiate analgesic; Z79.899 Other long term (current) drug therapy; W10.9XXA Fall (on) (from) unspecified stairs and steps, initial encounter; Y93.01 Activity, walking, marching and hiking
CPT/HCPCS: 72100; 73502; 99284; 96372; J2270

== ENCOUNTER → 2019-03-25 | Outpatient (CLI) | payer MEDICARE ==
--- NOTE | 2019-03-28 10:50 | MM ---
Reason for exam: screening (asymptomatic). Last mammogram was performed 1 year ago. Physical Findings: A clinical breast exam by your physician is recommended on an annual basis and results should be correlated with mammographic findings. MG 3D Screening Mammo W/Cad Bilateral CC and MLO view(s) were taken. Prior study comparison: April 01, 2018, bilateral MG 3d screening mammo w/cad. February 20, 2017, mammogram, performed at [facility]. There are scattered fibroglandular densities. No significant changes when compared with prior studies. ASSESSMENT: Benign, BI-RAD 2 RECOMMENDATION: Routine screening mammogram of both breasts in 1 year.
== END | disposition home or self-care (01) ==
LOC: RADMAMWWP 14:18
PROVIDERS: ATTEND Specialist
DX: Z12.31 Encounter for screening mammogram for malignant neoplasm of breast (principal)
CPT/HCPCS: 77063; 77067

== ENCOUNTER → 2019-08-07 | Outpatient (CLI) | payer MEDICARE ==
[2019-08-07 17:23] LABS: Basophils % (A) 1 %; Eosinophils # (A) 0.1 k/uL (0-0.7); Eosinophils % (A) 1 %; HCT 44.9 % (34.0-46.0); HGB 14.6 gm/dL (11.4-16.0); Lymphocytes # (A) 2.6 k/uL (1.0-4.8); Lymphocytes % (A) 36 %; MCH 30.8 pg (25.0-35.0); MCHC 32.5 g/dL (31.0-37.0); MCV 94.7 fL (80.0-100.0); Mean Platelet Volume 7.5; Monocytes # (A) 0.4 k/uL (0-1.0); Monocytes % (A) 5 %; Neutrophils % (A) 55 %; Platelet Count 295 k/uL (150-450); RBC 4.75 m/uL (3.80-5.40); RDW 12.4 % (11.5-15.5); WBC 7.4 k/uL (3.8-10.6)
[2019-08-07 18:58] LABS: Erythrocyte Sedimentation Rate 5 mm/hr (0-20)
== END | disposition home or self-care (01) ==
LOC: LABWHC1 16:27
PROVIDERS: ATTEND Physical Medicine & Rehabilitation
DX: M25.512 Pain in left shoulder (principal); M47.812 Spondylosis without myelopathy or radiculopathy, cervical region; M50.322 Other cervical disc degeneration at C5-C6 level; M54.12 Radiculopathy, cervical region; M79.12 Myalgia of auxiliary muscles, head and neck; R20.2 Paresthesia of skin
CPT/HCPCS: 36415; 85025; 85652; 86140

== ENCOUNTER → 2020-10-06 | Outpatient (CLI) | payer MEDICARE ==
--- NOTE | 2020-10-07 10:16 | MM ---
Reason for exam: screening (asymptomatic). Last mammogram was performed 1 year and 6 months ago. History: Patient is postmenopausal. Physical Findings: A clinical breast exam by your physician is recommended on an annual basis and results should be correlated with mammographic findings. MG 3D Screening Mammo W/Cad Bilateral CC and MLO view(s) were taken. Prior study comparison: March 25, 2019, bilateral MG 3d screening mammo w/cad. April 01, 2018, bilateral MG 3d screening mammo w/cad. There are scattered fibroglandular densities. There is no discrete abnormality. No significant changes when compared with prior studies. ASSESSMENT: Negative, BI-RAD 1 RECOMMENDATION: Routine screening mammogram of both breasts in 1 year.
== END | disposition home or self-care (01) ==
LOC: RADMAMWWP 06:59
PROVIDERS: ATTEND Family Medicine
DX: Z12.31 Encounter for screening mammogram for malignant neoplasm of breast (principal); Z78.0 Asymptomatic menopausal state
CPT/HCPCS: 77063; 77067

== ENCOUNTER 2020-10-26 14:30 | Emergency (ER) | payer MEDICARE ==
[2020-10-26 14:56] VITALS: BP 126/76; PULSE 99; RESP 16; TEMP 97.8
[2020-10-26] MEDS ORDERED: ORPHENADRINE 30 MG/ML 2 ML VIAL IM STA (17:14)
[2020-10-26] MEDS ORDERED: KETOROLAC 15 MG/ML 1 ML VIAL IM STA (17:14)
--- NOTE | 2020-10-26 17:19 | ED ---
Back Pain HPI - General Chief Complaint: Back Pain/Injury Stated Complaint: hip & back pain Time Seen by Provider: 10/26/20 17:14 Source: patient, family, RN notes reviewed Limitations: no limitations - History of Present Illness Initial Comments: Tearful 70-year-old white female, alert and oriented 4, complaining of left hip pain that radiates to the front of her left thigh. Patient states that Sunday she was trying to push a car and developed some low back pain, and then all day yesterday she was planting which aggravated it worse to the point where today she is unable to get comfortable and has not had any relief with Motrin ice or heat. Patient states that this has happened to her in the past several years ago and was given anti-inflammatories and pain medication and within 2 days the pain was gone. Patient denies any chest pain, nausea vomiting diarrhea or shortness of breath. She denies bowel or bladder incontinence MD Complaint: back pain -: days(s) (2) Similar Symptoms Previously: Yes Place: home Radiation: left leg Severity: severe Severity scale (1-10): 10 Quality: other Consistency: constant (Shooting) Improves With: none Worsens With: movement, walking Context: other (Patient states she was pushing a cart on Sunday, yesterday she was planting all day worsening pain) Treatments Prior to Arrival: cold therapy, heat therapy, NSAIDS (Motrin at 9:30) - Related Data Home Medications Medication Instructions Recorded Confirmed Aspirin EC [Ecotrin Low Dose] 81 mg PO HS 03/28/17 03/28/17 Multivitamins, Thera [Multivitamin 1 tab PO DAILY 03/28/17 03/28/17 (formulary)] Naltrexone HCl/Bupropion HCl 1 tab PO BID 03/28/17 03/28/17 [Contrave ER 8-90 mg Tablet] Rosuvastatin [Crestor] 20 mg PO HS 03/28/17 03/28/17 Previous Rx's Medication Instructions Recorded Cyclobenzaprine [Flexeril] 10 mg PO BID PRN 5 Days #10 tab 10/26/20 Ibuprofen [Motrin] 600 mg PO Q8HR PRN #30 tab 10/26/20 Allergies Allergy/AdvReac Type Severity Reaction Status Date / Time No Known Allergies Allergy Verified 10/26/20 14:53 Review of Systems ROS Statement: Those systems with pertinent positive or pertinent negative responses have been documented in the HPI. ROS Other: All systems not noted in ROS Statement are negative. Past Medical History Past Medical History: CVA/TIA, Hyperlipidemia, Osteoarthritis (OA) Additional Past Medical History / Comment(s): 3 TIAs per patient , UPPER BRIDGE, BEGINNINGS OF CATARACTS(SATNAM), DIVERTICULAR DISEASE, SHINGLES , PAST RT WRIST BROKEN History of Any Multi-Drug Resistant Organisms: None Reported Past Surgical History: Ablation, Appendectomy, Back Surgery, Hysterectomy, Tubal Ligation Additional Past Surgical History / Comment(s): SATNAM BUNIONECTOMY HAS PINS/SCREWS, TOTAL HYSTERECTOMY, RT WRIST SX"RESET BROKEN WRIST" Past Anesthesia/Blood Transfusion Reactions: No Reported Reaction Past Psychological History: No Psychological Hx Reported Smoking Status: Never smoker Past Alcohol Use History: Occasional Past Drug Use History: None Reported - Past Family History Mother Additional Family Medical History / Comment(s): MG Father Family Medical History: Cancer Additional Family Medical History / Comment(s): LUNG CANCER- WAS A HEAVY SMOKER General Exam Limitations: no limitations General appearance: alert, in no apparent distress, other (Tearful) Head exam: Present: atraumatic, normocephalic, normal inspection Eye exam: Present: normal appearance, PERRL, EOMI. Absent: scleral icterus, conjunctival injection, periorbital swelling Pupils: Present: normal accommodation ENT exam: Present: normal exam, normal oropharynx, mucous membranes moist Neck exam: Present: normal inspection, full ROM. Absent: tenderness, meningismus, lymphadenopathy, thyromegaly Respiratory exam: Present: normal lung sounds bilaterally. Absent: respiratory distress, wheezes, rales, rhonchi, stridor, chest wall tenderness, accessory muscle use, decreased breath sounds Cardiovascular Exam: Present: regular rate, normal rhythm, normal heart sounds. Absent: systolic murmur, diastolic murmur, rubs, gallop, clicks GI/Abdominal exam: Present: soft, normal bowel sounds. Absent: distended, tenderness, guarding, rebound, rigid Rectal exam: Present: deferred Extremities exam: Present: normal inspection, full ROM, normal capillary refill. Absent: tenderness, pedal edema, joint swelling, calf tenderness Back exam: Present: normal inspection, tenderness, muscle spasm (Left-sided muscle spasms at the sacroiliac joint). Absent: full ROM, CVA tenderness (R), CVA tenderness (L) Neurological exam: Present: alert, oriented X3, CN II-XII intact Psychiatric exam: Present: normal affect, normal mood Skin exam: Present: warm, dry, intact, normal color. Absent: rash Course Vital Signs 10/26/20 14:53 Temperature 97.8 F Pulse Rate 99 Respiratory 16 Rate Blood Pressure 126/76 O2 Sat by Pulse 99 Oximetry Medical Decision Making - Medical Decision Making Patient feeling much better up ambulating in the room and ready to go home. Patient states that the Norflex and Toradol is working. Patient will be discharged with Flexeril and Motrin and follow up with primary care doctor. Case discussed with Dr. Freedman who was agreeable to this plan. Disposition Clinical Impression: Sciatica Disposition: HOME SELF-CARE Condition: Good Instructions (If sedation given, give patient instructions): Sciatica (ED) Additional Instructions: Take medication as prescribed, rest and follow-up with primary care doctor in 1 week. Prescriptions: Cyclobenzaprine [Flexeril] 10 mg PO BID PRN 5 Days #10 tab PRN Reason: Pain Ibuprofen [Motrin] 600 mg PO Q8HR PRN #30 tab PRN Reason: Pain Is patient prescribed a controlled substance at d/c from ED?: No Referrals: None,Stated [REFERRING] - 1-2 days Time of Disposition: 17:55
== END 2020-10-26 18:05 | disposition home or self-care (01) ==
LOC: EC 14:30
DX: M54.42 Lumbago with sciatica, left side (principal); M25.552 Pain in left hip; E78.5 Hyperlipidemia, unspecified; M19.90 Unspecified osteoarthritis, unspecified site; Z86.73 Personal history of transient ischemic attack (TIA), and cerebral infarction without residual deficits; Z79.82 Long term (current) use of aspirin
CPT/HCPCS: 99283; 96372 ×2; J2360; J1885

== ENCOUNTER 2021-08-08 04:22 | Emergency (ER) | payer MEDICARE ==
[2021-08-08 04:54] VITALS: TEMP 98.5
--- NOTE | 2021-08-08 05:40 | XR ---
EXAMINATION TYPE: XR foot complete LT DATE OF EXAM: 08/08/2021 COMPARISON: NONE HISTORY: Foot pain TECHNIQUE: 3 views FINDINGS: There is a screw fixing old osteotomy of the first metatarsal head. There is pin fixing the PIP joint of the second toe. There is osteotomy of the head of the proximal phalanx of the third toe . There is plantar calcaneal spurring. IMPRESSION: Previous surgery. Calcaneal spurring. No acute bony abnormality. I do not see evidence of migration of the pin in the second toe.
--- NOTE | 2021-08-08 05:57 | ED ---
Extremity Problem HPI - General Chief complaint: Extremity Problem,Nontraumatic Stated complaint: Foot Pain Time Seen by Provider: 08/08/21 04:24 Source: patient, RN notes reviewed, old records reviewed Mode of arrival: wheelchair Limitations: no limitations - History of Present Illness Initial comments: This is a 71-year-old female to the emergency department for evaluation of foot pain and left toe pain for foot pain. Does have history of surgery to her second toe. Patient states the pain is on that toe radiating up into her ankle area. No injury noted. Patient has difficulty walking on it ankle. Patient concern for evaluation she is getting a flight tomorrow to go to see his medications. Patient states pain is severe worsening she states her she walks. No fevers. No history of similar complaint MD Complaint: extremity pain, joint pain -: days(s) Location: left, toe ([place] second toe) -: Yes arthralgia Radiation: proximal Severity scale (1-10): 7 Quality: sharp Consistency: constant Improves with: nothing Worsens with: weight bearing, walking, palpation Associated Symptoms: denies other symptoms - Related Data Home Medications Medication Instructions Recorded Confirmed Aspirin EC [Ecotrin Low Dose] 81 mg PO HS 03/28/17 03/28/17 Multivitamins, Thera [Multivitamin 1 tab PO DAILY 03/28/17 03/28/17 (formulary)] Naltrexone HCl/Bupropion HCl 1 tab PO BID 03/28/17 03/28/17 [Contrave ER 8-90 mg Tablet] Rosuvastatin [Crestor] 20 mg PO HS 03/28/17 03/28/17 Previous Rx's Medication Instructions Recorded Cyclobenzaprine [Flexeril] 10 mg PO BID PRN 5 Days #10 tab 10/26/20 Ibuprofen [Motrin] 600 mg PO Q8HR PRN #30 tab 10/26/20 Indomethacin [Indocin] 50 mg PO BID #14 capsule 08/08/21 Allergies Allergy/AdvReac Type Severity Reaction Status Date / Time No Known Allergies Allergy Verified 10/26/20 14:53 Review of Systems ROS Statement: Those systems with pertinent positive or pertinent negative responses have been documented in the HPI. ROS Other: All systems not noted in ROS Statement are negative. Past Medical History Past Medical History: CVA/TIA, Hyperlipidemia, Osteoarthritis (OA) Additional Past Medical History / Comment(s): 3 TIAs per patient , UPPER BRIDGE, BEGINNINGS OF CATARACTS(SATNAM), DIVERTICULAR DISEASE, SHINGLES , PAST RT WRIST BROKEN History of Any Multi-Drug Resistant Organisms: None Reported Past Surgical History: Ablation, Appendectomy, Back Surgery, Hysterectomy, Tubal Ligation Additional Past Surgical History / Comment(s): SATNAM BUNIONECTOMY HAS PINS/SCREWS, TOTAL HYSTERECTOMY, RT WRIST SX"RESET BROKEN WRIST" Past Anesthesia/Blood Transfusion Reactions: No Reported Reaction Past Psychological History: No Psychological Hx Reported Smoking Status: Never smoker Past Alcohol Use History: Occasional Past Drug Use History: None Reported - Past Family History Mother Additional Family Medical History / Comment(s): MG Father Family Medical History: Cancer Additional Family Medical History / Comment(s): LUNG CANCER- WAS A HEAVY SMOKER General Exam General appearance: alert, in no apparent distress Head exam: Present: atraumatic, normocephalic, normal inspection Eye exam: Present: normal appearance, PERRL, EOMI. Absent: scleral icterus, conjunctival injection, periorbital swelling ENT exam: Present: normal exam, mucous membranes moist Neck exam: Present: normal inspection. Absent: tenderness, meningismus, lymphadenopathy Respiratory exam: Present: normal lung sounds bilaterally. Absent: respiratory distress, wheezes, rales, rhonchi, stridor Cardiovascular Exam: Present: regular rate, normal rhythm, normal heart sounds. Absent: systolic murmur, diastolic murmur, rubs, gallop, clicks GI/Abdominal exam: Present: soft, normal bowel sounds. Absent: distended, tenderness, guarding, rebound, rigid Extremities exam: Present: normal inspection, full ROM, normal capillary refill, other (Left great toe and second digit are significantly tender to palpation mild erythema over second digit no streaking into the ankle or leg). Absent: tenderness, pedal edema, joint swelling, calf tenderness Back exam: Present: normal inspection Neurological exam: Present: alert, oriented X3, CN II-XII intact Psychiatric exam: Present: normal affect, normal mood Skin exam: Present: warm, dry, intact, normal color. Absent: rash Course Vital Signs 08/08/21 08/08/21 04:48 06:00 Temperature 98.5 F Pulse Rate 85 83 Respiratory 16 18 Rate Blood Pressure 133/74 114/72 O2 Sat by Pulse 98 98 Oximetry - Reevaluation(s) Reevaluation #1: 08/08/21 Medical records reviewed Patient symptoms improved here in the ER Patient informed results and questions answered Medical Decision Making - Medical Decision Making 71 female to the emergency department for evaluation likely a gouty tophus or mild cellulitis. X-rays negative for traumatic injury. Patient given pain control can be discharged home - Radiology Data Radiology results: report reviewed (X-ray left foot is negative for acute disease), image reviewed Disposition Clinical Impression: Gout of left foot, Cellulitis Disposition: HOME SELF-CARE Condition: Good Instructions (If sedation given, give patient instructions): Cellulitis (ED), Gout (ED) Prescriptions: Indomethacin [Indocin] 50 mg PO BID #14 capsule Is patient prescribed a controlled substance at d/c from ED?: No Referrals: None,Stated [Primary Care Provider] - 1-2 days
[2021-08-08 06:03] VITALS: BP 114/72; PULSE 83; RESP 18
[2021-08-08] MEDS ORDERED: IBUPROFEN 600 MG STARTER PACK 4 TAB BTL PO STA (06:22)
[2021-08-08] MEDS ORDERED: traMADol 50 MG STARTER PACK 3 TAB BTL PO STA (06:22)
[2021-08-08] MEDS ORDERED: ACET/COD 300 MG/30 MG STARTER PACK 6 TAB BTL PO STA (06:22)
[2021-08-08] MEDS ORDERED: ONDANSETRON 4 MG ODT STARTER PACK 2 TAB BTL PO STA (06:22)
[2021-08-08] MEDS ORDERED: KETOROLAC 15 MG/ML 1 ML VIAL IM STA (06:23)
[2021-08-08] MEDS ORDERED: dexAMETHasone 2 MG TAB PO STA (06:23)
[2021-08-08] MEDS ORDERED: Acetaminophen-Codeine 300-30mg TAB PO STA (06:23)
== END 2021-08-08 07:14 | disposition home or self-care (01) ==
LOC: EC 04:22
DX: M10.072 Idiopathic gout, left ankle and foot (principal); L03.116 Cellulitis of left lower limb
CPT/HCPCS: 73630; 99283; 96374; J8540; J1885; S0119

== ENCOUNTER → 2021-08-29 | Outpatient (CLI) | payer MEDICARE ==
[2021-08-29 10:52] LABS: Chol/HDL Ratio 2.46 Ratio; LDL Cholesterol,Calculated 89.1 mg/dL (0.0-131.0)
== END | disposition home or self-care (01) ==
LOC: LABWHC1 06:56
PROVIDERS: ATTEND Nurse Practitioner Adult Health
DX: E78.5 Hyperlipidemia, unspecified (principal)
CPT/HCPCS: 36415; 80061

== ENCOUNTER 2021-11-25 08:23 | Emergency (ER) | payer MEDICARE ==
[2021-11-25 08:28] VITALS: RESP 18; TEMP 97.7
[2021-11-25] MEDS ORDERED: ORPHENADRINE 30 MG/ML 2 ML VIAL IM STA (09:03)
[2021-11-25] MEDS ORDERED: KETOROLAC 15 MG/ML 1 ML VIAL IM STA (09:03)
--- NOTE | 2021-11-25 09:08 | ED ---
General Adult HPI - General Chief complaint: Back Pain/Injury Stated complaint: back pain Time Seen by Provider: 11/25/21 08:25 Source: patient, RN notes reviewed, old records reviewed Mode of arrival: ambulatory Limitations: no limitations - History of Present Illness Initial comments: This is a 71-year-old female presents emergency department stating that during the week she was cleaning a carpet and strained her lower back. Patient states since then it's gotten worse. Patient states it feels like spasms in her lower back and goes across her whole lower back. Patient states she has done this before and usually an anti-inflammatory and muscle relaxant helps. Patient denies any numbness weakness. Patient denies any problems urinating. Patient denies any trauma or fall. - Related Data Home Medications Medication Instructions Recorded Confirmed Aspirin EC [Ecotrin Low Dose] 81 mg PO HS 03/28/17 03/28/17 Multivitamins, Thera [Multivitamin 1 tab PO DAILY 03/28/17 03/28/17 (formulary)] Naltrexone HCl/Bupropion HCl 1 tab PO BID 03/28/17 03/28/17 [Contrave ER 8-90 mg Tablet] Rosuvastatin [Crestor] 20 mg PO HS 03/28/17 03/28/17 Previous Rx's Medication Instructions Recorded Cyclobenzaprine [Flexeril] 10 mg PO BID PRN 5 Days #10 tab 10/26/20 Ibuprofen [Motrin] 600 mg PO Q8HR PRN #30 tab 10/26/20 Indomethacin [Indocin] 50 mg PO BID #14 capsule 08/08/21 Cyclobenzaprine [Flexeril] 10 mg PO TID #20 tab 11/25/21 Ketorolac [Toradol] 10 mg PO Q6HR #15 tab 11/25/21 Allergies Allergy/AdvReac Type Severity Reaction Status Date / Time No Known Allergies Allergy Verified 11/25/21 08:28 Review of Systems ROS Statement: Those systems with pertinent positive or pertinent negative responses have been documented in the HPI. ROS Other: All systems not noted in ROS Statement are negative. Past Medical History Past Medical History: CVA/TIA, Hyperlipidemia, Osteoarthritis (OA) Additional Past Medical History / Comment(s): 3 TIAs per patient , UPPER BRIDGE, BEGINNINGS OF CATARACTS(SATNAM), DIVERTICULAR DISEASE, SHINGLES , PAST RT WRIST BROKEN History of Any Multi-Drug Resistant Organisms: None Reported Past Surgical History: Ablation, Appendectomy, Back Surgery, Hysterectomy, Tubal Ligation Additional Past Surgical History / Comment(s): SATNAM BUNIONECTOMY HAS PINS/SCREWS, TOTAL HYSTERECTOMY, RT WRIST SX"RESET BROKEN WRIST" Past Anesthesia/Blood Transfusion Reactions: No Reported Reaction Past Psychological History: No Psychological Hx Reported Smoking Status: Never smoker Past Alcohol Use History: Occasional Past Drug Use History: None Reported - Past Family History Mother Additional Family Medical History / Comment(s): MG Father Family Medical History: Cancer Additional Family Medical History / Comment(s): LUNG CANCER- WAS A HEAVY SMOKER General Exam - General Exam Comments Initial Comments: GENERAL Patient is well-developed and well-nourished. Patient is in mild distress. EYES Patient's pupils are equal and round. Extraocular motion is intact SKIN Unremarkable NEURO The patient is alert and oriented 3. Patient has normal sensation of both legs. PYSCH Patient has normal interpersonal interactions. MUSCULOSKELETAL All 4 extremities have full range of motion. Patient has normal strength. Patient is able to ambulate. Patient has tenderness to lower back both on the right than the left. Limitations: no limitations Course Vital Signs 11/25/21 08:23 Temperature 97.7 F Pulse Rate 79 Respiratory 18 Rate Blood Pressure 147/77 O2 Sat by Pulse 95 Oximetry Disposition Clinical Impression: Back spasm Disposition: HOME SELF-CARE Instructions (If sedation given, give patient instructions): Muscle Spasm (ED) Prescriptions: Cyclobenzaprine [Flexeril] 10 mg PO TID #20 tab Ketorolac [Toradol] 10 mg PO Q6HR #15 tab Is patient prescribed a controlled substance at d/c from ED?: No Referrals: Elvin Larios MD [Primary Care Provider] - 1-2 days Time of Disposition: 09:07
[2021-11-25 09:36] VITALS: BP 142/84; PULSE 78
== END 2021-11-25 09:36 | disposition home or self-care (01) ==
LOC: EC 08:23
DX: M62.830 Muscle spasm of back (principal); Z86.73 Personal history of transient ischemic attack (TIA), and cerebral infarction without residual deficits; E78.5 Hyperlipidemia, unspecified
CPT/HCPCS: 99283; 96372; J2360; J1885

== ENCOUNTER → 2022-04-10 | Outpatient (CLI) | payer MEDICARE | END | disposition home or self-care (01) | LOC: LABPAT 07:05 | PROVIDERS: ATTEND Orthopaedic Surgery | DX: Z01.812 Encounter for preprocedural laboratory examination (principal); M16.12 Unilateral primary osteoarthritis, left hip | CPT/HCPCS: 87070 ==

== ENCOUNTER 2022-04-18 07:44 | Day surgery (SDC) | payer MEDICARE ==
[2022-04-14 10:25] VITALS: BMI 30.7
[~2022-04-18 07:44] MED LIST: ACETAMINOPHEN TAB 500 MG TAB PO PRN; GABAPENTIN 300 MG CAP PO PRN; LIDOCAINE 1% (10MG/ML) FOR IV START INTRADERMA PRN; MELOXICAM 7.5 MG TAB PO PRN; ONDANSETRON 4 MG/2 ML VIAL IVP ONE; TRANEXAMIC ACID IN NACL,ISO-OS 1,000 MG in SALINE 1 100ML.BAG IVPB PRN
[2022-04-18] MEDS: LACTATED RINGERS 1,000 ML IV SCH (08:30)
[2022-04-18] MEDS ORDERED: DEXAMETHASONE SOD PHOSPHATE 4 MG/ML 1 ML VIAL IV ONE (08:40)
[2022-04-18] MEDS ORDERED: LIDOCAINE 2% INJ 20 MG/ML (2 ML VIAL) ONE (09:22)
[2022-04-18] MEDS ORDERED: GLYCOPYRROLATE 0.2 MG/ML 2 ML VIAL ONE (09:22)
[2022-04-18] MEDS ORDERED: ROCURONIUM 10 MG/ML (5 ML VIAL) IV ONE (09:22)
[2022-04-18] MEDS ORDERED: PROPOFOL 10 MG/ML 20 ML VIAL IV ONE (09:22)
[2022-04-18] MEDS ORDERED: MIDAZOLAM 2 MG/2 ML VIAL ONE (09:22)
[2022-04-18] MEDS ORDERED: TRANEXAMIC ACID IN NACL,ISO-OS 1,000 MG/100 ML BAG ONE (09:22)
[2022-04-18] MEDS ORDERED: KETOROLAC 15 MG/ML 1 ML VIAL ONE (09:22)
[2022-04-18] MEDS ORDERED: NEOSTIGMINE 1 MG/ML 10 ML VIAL ONE (09:22)
[2022-04-18] MEDS ORDERED: fentaNYL (PF) 50 MCG/ML 2 ML AMP ONE (09:22)
[2022-04-18] MEDS ORDERED: HYDROmorphone (PF) 1 MG/ML ONE (09:22)
[2022-04-18] MEDS ORDERED: SUCCINYLCHOLINE CHLORIDE 200 MG/10 ML VIAL IV ONE (09:22)
[2022-04-18] MEDS ORDERED: ceFAZolin 1,000 MG in SODIUM CHLORIDE 0.9% 1,000 ML IRRIGATION ONE (09:27)
[2022-04-18] MEDS ORDERED: ROPIVACAINE 5 MG/ML 30 ML VIAL MISCELLANE ONE ×2 (09:49→10:15)
--- NOTE | 2022-04-18 10:30 | P.OP ---
Date of Procedure: 04/18/22 Preoperative Diagnosis: Severe osteoarthritis left hip Postoperative Diagnosis: Severe osteoarthritis left hip Procedure(s) Performed: Left total arthroplasty direct anterior approach Implants: [employer] Polarstem standard size 3 [employer] R3, 3 hole hemispherical acetabular shell, 48 mm [employer] Reflection 6.5 mm cancellus screw, 20 mm 2 [employer] R3, XLPE 20 acetabular liner [employer]hew Oxinium femoral head 32 m, -3 All components were press-fit. The articulation is Oxinium on polyethylene. Anesthesia: GETA Surgeon: Jaren Willoughby Laundry Routeman #1: Cindy Martinez Estimated Blood Loss (ml): 250 Pathology: other (Femoral head) Condition: stable Disposition: PACU Indications for Procedure: After failure of conservative treatment we discussed the surgical and nonsurgical treatment options at length. Patient wishes to proceed with a total hip arthroplasty with a direct anterior approach. Complications specific to this procedure were discussed at length, including but not limited to infection, leg length discrepancy, dislocation, nerve injury, and fracture. Covid-19 was also discussed at length with the patient, and they are aware of the current policies and procedures. The patient was given the option of delaying surgery, but they elect to proceed knowing these risks. Patient is aware of all these complications and informed consent was obtained Operative Findings: The operative findings are consistent with severe osteoarthritis of the left hip Description of Procedure: Patient was seen and evaluated in the preoperative area and the consent was reviewed. The operative site was marked with a skin marker. The patient was then brought to the operating room and given preoperative antibiotics intravenously. 1 g of Tranexamic acid was also given intravenously. A general anesthetic was administered by the anesthesia department. The patient was then placed on the [place] table with the bony prominences well-padded. The hip area was then prepped with a ChloraPrep solution and draped in the usual sterile fashion. A universal timeout was then performed, which confirmed the patient's name, surgical site, ALLERGIES, and procedure being performed on the consent. Next the incision site was located at 1 cm distal and 2 cm lateral to the anterior superior iliac spine. The skin and subcutaneous tissues were sharply incised. Incision was carefully dissected down to the fascia overlying the tensor fascia erika muscle. This fascia was then incised in line with the incision. Care was taken to stay laterally in order to avoid injuring the lateral femoral cutaneous nerve. Next, using blunt finger dissection, the tensor fascia erika muscle was dissected off its investing fascia. The muscle was then carefully retracted laterally with a cobra retractor over the lateral neck of the femur. Next, the circumflex vessels were identified and cauterized using the AquaMantis device. The anterior hip capsule was then exposed. The capsule was then opened and an inverted T fashion. Cobra retractors were then placed intracapsularly. The retractors were maintained intracapsular throughout the procedure. The proximal femur was then visualized. Fluoroscopic x-rays were then taken in order to evaluate the preoperative leg lengths. A small amount of traction was placed on the leg. The femoral neck was then osteotomized at the appropriate level above the lesser trochanter. A small wedge of bone was then removed from the remaining femoral head. Next, using a corkscrew the femoral head was removed from the acetabulum. On gross visual inspection, the femoral head had complete loss of articular cartilage and multiple periarticular osteophytes. The femoral head was then measured. Attention was then turned to the acetabulum. The acetabulum was exposed and any remaining labrum was excised. Sequential reaming of the acetabulum was performed using fluoroscopic guidance until there was a good bed of bleeding cancellus bone. When the appropriate size was reached, a trial was then placed. The position and fit of the trial was checked with fluoroscopy. The trial was then removed. Then, using fluoroscopic guidance, the final implant was impacted at 20 of anteversion and 40 of abduction, and fully seated in the acetabulum. 2 screws were then placed in the acetabulum. Again fluoroscopy was used to check position of the screws. Next, the liner was then impacted, with a 20 elevated liner located in the anterior superior quadrant. Component locking was confirmed. Attention was then directed to the femur. With the aid of the [place] table, the femur was externally rotated to approximately 130, extended, and adducted under the opposite leg. A side hook was then placed under the proximal femur, and the side hook elevator was used to elevate the proximal femur while releasing the capsule. Retractors were then placed. A capsular release was performed, as well as a release of the conjoined tendon, which afforded excellent visualization of the proximal femur. Next, a box osteotome was used to lateralize the proximal femur. A hand carver was then used to locate the f emoral canal. Sequential broaching was then performed with appropriate size which afforded excellent fixation in the proximal femur. A trial was then placed with appropriate head and neck, and the hip was gently reduced with the aid of the [place] table. Fluoroscopy was then used to check position of the components, as well as to evaluate the leg lengths and offset. The leg lengths and offset were measured as closely as possible to ensure stability of the hip. The hip was then gently dislocated and the trials were then removed. Final implants were then impacted and the hip was again reduced. Final fluoroscopic x-rays confirmed that the components were in anatomic position. The leg lengths and offset were measured and were found to coincide with the trial measurements. The hip was also taken through range of motion, and found to be stable. The hip was then copiously irrigated with antibiotic solution with pulsatile lavage. The hip was then irrigated with Irrisept solution. The soft tissues were then injected with a ropivacaine solution. A second dose of 1 g of Tranexamic acid was also given intravenously. The fascia was then closed with 2-0 strata fix suture. The subcutaneous tissue was closed with 3-0 Vicryl. The subcuticular tissue was closed with 3-0 strata fix suture. The skin was then closed with Exofin skin glue. After the glue and dried, and Optifoam silver impregnated dressing was applied. The patient was then transferred to the recovery room in stable condition. The customer care assistant MARE Guerin was required due to the complexity of surgery, and the need for skilled surgical garment inspector for positioning, draping, exposure, retraction, and closure of the wound.
--- NOTE | 2022-04-18 10:46 | XR ---
EXAMINATION TYPE: XR Hip Limited LT DATE OF EXAM: 04/18/2022 COMPARISON: NONE HISTORY: Postop TECHNIQUE: One view submitted. FINDINGS: There is postsurgical change in near anatomic alignment. There is soft tissue edema and emphysema. IMPRESSION: 1. Postoperative change. Appears in near-anatomic alignment.
[2022-04-18] MEDS ORDERED: HYDROmorphone 0.5 MG/0.5 ML SYRINGE IVP PRN ×2 (10:53)
[2022-04-18] MEDS ORDERED: ONDANSETRON 4 MG/2 ML VIAL IVP PRN (10:53)
[2022-04-18] MEDS ORDERED: NALOXONE 0.4 MG/ML 1 ML VIAL IV PRN (10:53)
[2022-04-18] MEDS ORDERED: HYDROcodone/APAP 7.5-325MG 1 EACH TAB PO PRN (10:55)
--- NOTE | 2022-04-18 11:03 | FL ---
EXAMINATION TYPE: FL guidance operating room DATE OF EXAM: 04/18/2022 FLUOROSCOPY Fluoroscopy time of 54 seconds was used during anterior left hip replacement. 2 image/s document/s t he procedure.
[2022-04-18] MEDS: HYDROmorphone 0.5 MG/0.5 ML SYRINGE IVP PRN ×5 (11:07→23:18)
[2022-04-18] MEDS ORDERED: MEPERIDINE 50 MG/ML SYRINGE IVP ONE (11:37)
[2022-04-18] MEDS ORDERED: LACTATED RINGERS 1,000 ML IV ONE (12:25)
[2022-04-18] MEDS ORDERED: HYDROcodone/APAP 7.5-325MG 1 EACH TAB PO ONE (12:59)
[2022-04-18] MEDS ORDERED: GABAPENTIN 300 MG CAP PO PRN (14:38)
[2022-04-18] MEDS ORDERED: KETOROLAC 15 MG/ML 1 ML VIAL IVP PRN (14:38)
[2022-04-18] MEDS: SODIUM CHLORIDE 0.9% 1,000 ML IV SCH (15:18)
--- NOTE | 2022-04-18 17:34 | P.CONS ---
History of Present Illness - Reason for Consult Consult date: 04/18/22 - History of Present Illness Patient is a 71-year-old female with PMH of dyslipidemia and GERD presents to [facility] for elective surgery. She underwent left total arthroplasty with a direct anterior approach. She has been admitted overnight for observation. [facility] consulted for medical management of this patient. Patient reports well-controlled pain in her right hip. Pain is 4 out of 10 in severity. She has been ambulating since her sugery. Has a few stairs to get into the house. Urinating freely but no bowel movement. Patient denies any headache, lower extremity edema, nausea or vomiting, fever or chills, cough, chest pain, shortness breath, palpitations. No changes in appetite or weight. She denies any dizziness, numbness/weakness/tingling of the extremities. Pertinent positives and negatives as discussed in HPI, a complete review of systems was performed and all other systems are negative. General: non toxic, no distress, appears at stated age Derm: warm, dry Head: atraumatic, normocephalic, symmetric Eyes: EOMI, no lid lag, anicteric sclera Mouth: no lip lesion, mucus membranes moist Cardiovascular: S1S2 reg, no murmur Lungs: CTA bilateral, no rhonchi, no rales , no accessory muscle use Ext: no gross muscle atrophy, no edema, no contractures Neuro: no focal neuro deficits Psych: Alert, oriented, appropriate affect #Dyslipidemia #GERD Restart Lovastatin. Resart Omeprazole. DVT prophylaxis: ASA, SCD boots Discussed with: Patient Anticipated discharge: 1-[address]: Home A total of 25 minutes was spent on the care of this complex patient more than 50% of the time was spent in counseling and care coordination. Past Medical History Past Medical History: CVA/TIA, Hyperlipidemia, Osteoarthritis (OA) Additional Past Medical History / Comment(s): 3 TIAs per patient , UPPER BRIDGE, BEGINNINGS OF CATARACTS(SATNAM), DIVERTICULAR DISEASE, SHINGLES , PAST RT WRIST BROKEN History of Any Multi-Drug Resistant Organisms: None Reported Past Surgical History: Appendectomy, Back Surgery, Hysterectomy, Orthopedic Surgery, Tubal Ligation, Uterine Ablation Additional Past Surgical History / Comment(s): SATNAM BUNIONECTOMY HAS PINS/SCREWS, TOTAL HYSTERECTOMY, RT WRIST SX"RESET BROKEN WRIST" Ant TLH 04/18/22 Past Anesthesia/Blood Transfusion Reactions: No Reported Reaction Past Psychological History: No Psychological Hx Reported Additional Psychological History / Comment(s): PT IS INDEPENDANT LIVES IN 2 STORY HOME WITH HER SPOUSE. HAS 4 PORCH STEPS AND 20 STEPS TO 2ND FLOOR. HAS 1 PET DOG. NO HOME CARE SERVICES RECIEVED. NO MEDICAL EQUIPMENT. PT IS RETIRED. 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 Past Drug Use History: None Reported - Past Family History Mother Additional Family Medical History / Comment(s): MG Father Family Medical History: Cancer Additional Family Medical History / Comment(s): LUNG CANCER- WAS A HEAVY SMOKER Medications and Allergies Home Medications Medication Instructions Recorded Confirmed Type Lovastatin [Mevacor] 40 mg PO HS 04/14/22 04/14/22 History Omeprazole 40 mg PO DAILY 04/14/22 04/14/22 History Aspirin 325 mg PO BID #60 tab 04/18/22 Rx HYDROcodone/APAP 7.5-325MG [[place] 1 - 2 tab PO Q6H PRN #32 tab 04/18/22 Rx 7.5-325] Ketorolac [Toradol] 10 mg PO Q6HR #8 tab 04/18/22 Rx Ondansetron Odt [Zofran Odt] 1 tab PO Q8HR PRN #10 tab 04/18/22 Rx Sennosides [Senokot] 2 tab PO DAILY PRN #60 tablet 04/18/22 Rx Allergies Allergy/AdvReac Type Severity Reaction Status Date / Time No Known Allergies Allergy Verified 04/14/22 10:16 Physical Exam Vitals: Vital Signs Temp Pulse Resp BP Pulse Ox 04/18/22 15:48 97.4 F L 94 18 130/83 97 04/18/22 12:55 78 16 120/70 97 04/18/22 12:39 60 16 120/64 99 04/18/22 12:04 69 16 115/58 98 04/18/22 11:34 78 16 146/76 100 04/18/22 11:19 87 16 157/73 100 04/18/22 11:04 86 16 151/74 100 04/18/22 10:49 96.8 F L 92 16 114/57 99 04/18/22 08:18 97.0 F L 77 16 143/69 99 Intake and Output 04/18/22 04/18/22 04/18/22 06:59 14:59 22:59 Intake Total 2050 Output Total 250 Balance 1801 Intake: IV 2050 Output: Estimated Blood Loss 250 Other: Voiding Method Toilet # Voids 1 Weight 86.2 kg 86.2 kg
[2022-04-18] MEDS: HYDROcodone/APAP 7.5-325MG 1 EACH TAB PO PRN ×2 (18:27→23:18)
[2022-04-18] MEDS ORDERED: ATORVASTATIN 10 MG TAB PO SCH (21:00)
[2022-04-18] MEDS ORDERED: SENNOSIDES-DOCUSATE SODIUM 1 EACH TAB PO SCH (21:00)
[2022-04-18] MEDS: ASPIRIN 325 MG TAB PO SCH (21:42)
[2022-04-19] MEDS: SODIUM CHLORIDE 0.9% 1,000 ML IV SCH (04:02)
[2022-04-19] MEDS: HYDROcodone/APAP 7.5-325MG 1 EACH TAB PO PRN (06:17)
[2022-04-19] MEDS: LACTATED RINGERS 1,000 ML IV SCH (06:31)
[2022-04-19 07:26] VITALS: BP 117/68; PULSE 80; RESP 18; TEMP 98.9
[2022-04-19] MEDS ORDERED: PANTOPRAZOLE 40 MG TABLET PO SCH (07:30)
--- NOTE | 2022-04-19 07:33 | P.DS ---
Providers Expected date of discharge: 04/19/22 Attending physician: Jaren Willoughby Consults: 04/18/22 14:40 Consult Physician Routine Consulting Provider: Christopher Juarez Consult Reason/Comments: medical management Do you want consulting provider notified?: Yes Primary care physician: Elvin Larios MD - Discharge Diagnosis(es) (1) Primary localized osteoarthritis of left hip Current Visit: Yes Status: Acute (2) Status post total hip replacement, left Current Visit: Yes Status: Acute Hospital Course: This is a 71-year-old female with known history of degenerative arthritis of the left hip. The patient presents for evaluation. After discussion and consideration patient elects to proceed with total hip arthroplasty with direct anterior approach. The patient is seen preoperatively by primary care physician and cleared for surgery. Patient is admitted to [facility] on 04/18/2022 for total hip arthroplasty with direct anterior approach. The procedure is performed without complication or sequelae. The patient is doing well postoperatively. Labs and vital signs are stable on day of discharge. On day of discharge patient's hip incision is healing well. There is minimal erythema. There is no drainage noted at this time. There is minimal soft tissue swelling to the hip and thigh. Patient has full foot and ankle motion without difficulty or pain. Neurovascular status to the lower extremity is intact. Patient is discharged to home in good condition. Please see med rec for accurate list of home medications. Patient Condition at Discharge: Good Plan - Discharge Summary Discharge Rx Participant: Yes New Discharge Prescriptions: New HYDROcodone/APAP 7.5-325MG [[place] 7.5-325] 1 - 2 tab PO Q6H PRN #32 tab PRN Reason: Pain Ondansetron Odt [Zofran Odt] 1 tab PO Q8HR PRN #10 tab PRN Reason: Nausea Celecoxib [CeleBREX] 200 mg PO DAILY #30 capsule Aspirin 325 mg PO BID #60 tab Sennosides [Senokot] 2 tab PO DAILY PRN #60 tablet PRN Reason: Constipation Ketorolac [Toradol] 10 mg PO Q6HR #8 tab No Action Omeprazole 40 mg PO DAILY Lovastatin [Mevacor] 40 mg PO HS Discharge Medication List Lovastatin [Mevacor] 40 mg PO HS 04/14/22 [History] Omeprazole 40 mg PO DAILY 04/14/22 [History] Aspirin 325 mg PO BID #60 tab 04/18/22 [Rx] HYDROcodone/APAP 7.5-325MG [[place] 7.5-325] 1 - 2 tab PO Q6H PRN #32 tab 04/18/22 [Rx] Ketorolac [Toradol] 10 mg PO Q6HR #8 tab 04/18/22 [Rx] Ondansetron Odt [Zofran Odt] 1 tab PO Q8HR PRN #10 tab 04/18/22 [Rx] Sennosides [Senokot] 2 tab PO DAILY PRN #60 tablet 04/18/22 [Rx] Celecoxib [CeleBREX] 200 mg PO DAILY #30 capsule 04/19/22 [Rx] Follow up Appointment(s)/Referral(s): [facility] [NON-STAFF] - 1-2 Days Jaren Willoughby DO [Doctor of Osteopathic Medicine] - 2 Weeks (Please keep your follow up appointment. ) Patient Instructions/Handouts: How to Use an Incentive Spirometer (DC), Total Hip Replacement (DC), General Anesthesia (DC) Activity/Diet/Wound Care/Special Instructions: Weightbearing as tolerated with walker. Leave dressing intact. Dressing may be removed by home care nurse or by patient in 7 days. Then change dressing twice daily until follow up. May shower with initial dressing intact and after removal. If dressing become saturated, please remove. Please take aspirin 325mg twice daily for 30 days to prevent blood clots. Recommend use of compression stockings daily until follow up to help prevent swelling and blood clots. May remove at night before sleeping. Please follow-up with [facility] in 2 weeks and call with any questions or concerns, . Discharge Disposition: HOME WITH HOME HEALTH SERVICES
[2022-04-19] MEDS: ASPIRIN 325 MG TAB PO SCH (08:33)
[2022-04-19 10:24] LABS: Basophils # (A) 0.03 X 10*3/uL (0.00-0.10); Basophils % (A) 0.3 %; Eosinophils # (A) 0.04 X 10*3/uL (0.04-0.35); Eosinophils % (A) 0.4 %; HCT 38.9 % (37.2-46.3); HGB 12.4 g/dL (12.0-15.0); Immature Grans, Automated 0.3 %; Lymphocytes # (A) 2.95 X 10*3/uL (0.90-5.00); Lymphocytes % (A) 31.2 %; MCH 31.1 pg (27.0-32.0); MCHC 31.9 g/dL (32.0-37.0); MCV 97.5 fL (80.0-97.0); Mean Platelet Volume 10.5 fL (9.5-12.2); Monocytes # (A) 0.94 X 10*3/uL (0.20-1.00); Monocytes % (A) 9.9 %; NRBC Per 100 WBC 0 /100 WBCS (0.0-0.0); Neutrophils # (A) 5.47 X 10*3/uL (1.80-7.70); Neutrophils % (A) 57.9 %; Platelet Count 221 X 10*3/uL (140-440); RBC 3.99 X 10*6/uL (4.10-5.20); RDW 12.9 % (11.5-14.5); WBC 9.46 X 10*3/uL (4.50-10.00)
--- NOTE | 2022-04-19 12:00 | P.PN ---
Subjective Progress Note Date: 04/19/22 Patient was seen and examined. No acute events overnight. Patient reports well-controlled pain in her right hip. She's been able to ambulate with PT without difficulties. General: non toxic, no distress, appears at stated age Derm: warm, dry Head: atraumatic, normocephalic, symmetric Eyes: EOMI, no lid lag, anicteric sclera Mouth: no lip lesion, mucus membranes moist Cardiovascular: S1S2 reg, no murmur Lungs: CTA bilateral, no rhonchi, no rales , no accessory muscle use Ext: no gross muscle atrophy, no edema, no contractures Neuro: no focal neuro deficits Psych: Alert, oriented, appropriate affect #Dyslipidemia #GERD Restart Lovastatin. Restart Omeprazole. Patient is medically cleared for discharge. Objective - Vital Signs Vital signs: Vital Signs Temp 98.9 F 04/19/22 07:25 Pulse 80 04/19/22 07:25 Resp 18 04/19/22 07:25 BP 117/68 04/19/22 07:25 Pulse Ox 95 04/19/22 07:25 FiO2 Intake & Output 04/18/22 04/19/22 04/19/22 18:59 06:59 18:59 Intake Total 2051 1560 Output Total 250 Balance 1801 1560 Weight 86.2 kg Intake: IV 2050 Intake, IV Titration 840 Amount Sodium Chloride 0.9% 1, 840 000 ml @ 70 mls/hr IV . [id number] GEMMA Rx#:[id number] Oral 720 Output: Estimated Blood Loss 250 Other: Voiding Method Toilet Toilet # Voids 1 2 - Labs CBC & Chem 7: 04/19/22 06:41 Labs: Abnormal Lab Results - Last 24 Hours (Table) 04/19/22 Range/Units 06:41 RBC 3.99 L (4.10-5.20) X 10*6/uL MCV 97.5 H (80.0-97.0) fL MCHC 31.9 L (32.0-37.0) g/dL
== END 2022-04-19 10:26 | disposition home health service (06) ==
LOC: OR 07:44 → 4SSUR 10:42 → OR 04-19 10:26
PROVIDERS: ATTEND Orthopaedic Surgery
DX: M16.12 Unilateral primary osteoarthritis, left hip (principal); K21.9 Gastro-esophageal reflux disease without esophagitis; E78.5 Hyperlipidemia, unspecified; Z86.73 Personal history of transient ischemic attack (TIA), and cerebral infarction without residual deficits; Z90.49 Acquired absence of other specified parts of digestive tract; Z90.710 Acquired absence of both cervix and uterus; Z98.51 Tubal ligation status; Z87.891 Personal history of nicotine dependence
CPT/HCPCS: 27130; 97116; 97530; 97161; 86900; 86901; 85025; 86850; 88300; 73501; 36415; C1776; J2250; J0330; J1100; J2710; J2175; J0690 ×2; J2405; J3010; J1170 ×2; J2795; J1885; J2704; J2001

== ENCOUNTER → 2023-04-03 | Day surgery (SDC) | payer MEDICARE ==
[~2023-04-03] MED LIST changes: -ACETAMINOPHEN TAB 500 MG TAB PO PRN; -GABAPENTIN 300 MG CAP PO PRN; -LIDOCAINE 1% (10MG/ML) FOR IV START INTRADERMA PRN; +LIDOCAINE 1% INJ 10MG/ML (20 ML MDV) ONE; +LIDOCAINE 1% INJ 10MG/ML (20 ML MDV) SQ ONE; -MELOXICAM 7.5 MG TAB PO PRN; -ONDANSETRON 4 MG/2 ML VIAL IVP ONE; +SODIUM CHLORIDE 0.9% 1,000 ML IV SCH; +SODIUM CHLORIDE 0.9% 500 ML 500 ML IV ONE; -TRANEXAMIC ACID IN NACL,ISO-OS 1,000 MG in SALINE 1 100ML.BAG IVPB PRN
[2023-04-03 15:37] VITALS: BP 160/100; PULSE 95; RESP 16; TEMP 97.9
--- NOTE | 2023-04-03 18:26 | P.EPPROC ---
- EP Procedure Note Electrophysiology Procedure Note: Loop monitor implant under local anesthesia Primary physicians: Net Development Manager: Dr. Deng Indication: TIA Patient was brought to the EP lab in a fasting state. Written informed consent was obtained prior to the procedure. The left pectoral area was prepped and draped per protocol. Intravenous antibiotic was administered preoperatively. A subcutaneous Loop monitor was implanted successfully and the wound was closed per protocol. The device was programmed to detect significant klever- arrhythmic and tachy-arrhythmic events, per protocol. Device and programming details: Cryptogenic stroke programming
== END ==
LOC: CATHEP 15:01
PROVIDERS: ATTEND Internal Medicine Clinical Cardiac Electrophysiology
DX: R55 Syncope and collapse (principal); E78.5 Hyperlipidemia, unspecified; F17.210 Nicotine dependence, cigarettes, uncomplicated; Z82.49 Family history of ischemic heart disease and other diseases of the circulatory system
CPT/HCPCS: 33285; C1764; J0690; J2001